=== PATIENT | female | born 1955 | race Hispanic/Latino ===

== ENCOUNTER 2023-02-21 03:06 | Emergency (ER) | payer OTHER ==
[~2023-02-21] VITALS: Ht 152.4 cm; Wt 82.2 kg
[2023-02-21 03:09] VITALS: BP 143/73; PULSE 63; RESP 18; O2SAT 98
[2023-02-21] MEDS ORDERED: LIDOCAINE HCL 1% 20 ML VIAL ONE (04:28)
[2023-02-21] MEDS ORDERED: CEFTRIAXONE 1G VIAL ONE (04:28)
[2023-02-21] MEDS ORDERED: FLUCONAZOLE 100 MG TAB ONE (04:29)
[2023-02-21] MEDS ORDERED: ACETAMINOPHEN 325 MG TAB ONE (07:56)
[2023-02-22 08:23] LABS: APPEARANCE,URINE CLEAR (CLEAR); BILIRUBIN,URINE NEGATIVE (NEGATIVE); COLOR,URINE COLORLESS (YELLOW); GLUCOSE, URINE (UA) NEGATIVE (NEGATIVE); KETONES,URINE NEGATIVE (NEGATIVE); LEUKOCYTE ESTERASE ,URINE 250 Leu/uL (NEGATIVE); NITRATE,URINE NEGATIVE (NEGATIVE); OCCULT BLOOD,URINE NEGATIVE (NEGATIVE); PH,URINE 5.5 (5.0-8.0); PROTEIN,URINE NEGATIVE (NEGATIVE); UROBILINOGEN,URINE 0.2 mg/dL (0.2-1.0)
[2023-02-22 11:22] LABS: ADD UA MICROSCOPIC YES
[2023-02-22 14:40] LABS: BACTERIA,URINE None Seen /HPF (None Seen); MUCUS,URINE Rare LPF (None Seen); RBC,URINE 0-1 /HPF (0-1); SQUAMOUS EPITHELIAL CELL,UR Few /HPF (0-2)
== END 2023-02-21 06:06 | disposition home or self-care (01) ==
LOC: EDH 03:06
DX: R68.89 Other general symptoms and signs (principal); Z53.21 Procedure and treatment not carried out due to patient leaving prior to being seen by health care provider
CPT/HCPCS: 99281; 87077; 87088; 87186; 87797; 87486; 81001; J0696

== ENCOUNTER → 2023-02-21 | Emergency (ER) | payer OTHER | LOC: EDH 07:30 | DX: E10.9 Type 1 diabetes mellitus without complications (principal); Z53.21 Procedure and treatment not carried out due to patient leaving prior to being seen by health care provider ==